=== PATIENT | male | born 2000 | race Caucasian/White ===

== ENCOUNTER 2025-03-28 12:48 | Emergency (ER) | payer SELFPAY ==
--- OUTSIDE RECORDS SUMMARY | 2025-03-28 13:22 | XMS_ITS | Clinical Summary ---
Author Organization [facility] Address [address] [place] [address] Care Team Providers Care Real Estate Legal Secretary Name Role Phone Tarah Downing MD Primary Care Provider [phone] Source Comments [facility],non-owned Affiliates and Associated Physician Practices is amultiple site organization consisting of ambulatory clinics and hospital sitesin [place], [place], [place] and [place]. This disclosure is being madepursuant to the Care Everywhere program and may not contain all information available regarding this patient. Last updated 18.[facility] Allergies No known active allergies Medications * Be aware that medications may not be up to date on this document. Alwaysverify current medications with the patient. Spacer/Aero-Hol ding Chambers (AEROCHAMBER) Use as directed. 1 Each 0 5 Active Additional Information Patient not taking.Reported on 12/26/2017 fluticasone hfa 110 (FLOVENT HFA 110) 110 MCG/ACT inhaler Inhale 2 Puffs by mouth 2 times daily Active cetirizine (ZYRTEC) 5 MG/5ML syrup Take 10 mL by mouth once daily 300 mL 7 Active Additional Information Patient not taking.Reported on 12/26/2017 albuterol HFA (PROVENTIL;VENT LASHAWN;PROAIR) 108 (90 BASE) MCG/ACT inhaler Inhale 4 puffs by mouth every 4 hours as needed for Shortness of Breath, Wheezing or Cough 1 Inhaler 8 Active ibuprofen (MOTRIN) 400 MG tablet Take 1 tablet by mouth every 6 hours as needed for Pain 30 tablet 8 Active albuterol HFA (PROVENTIL;VENT LASHAWN;PROAIR) 108 (90 Base) MCG/ACT inhaler Inhale 2 puffs by mouth every 4 hours as needed 1 Inhaler 5 9 Active Active Problems Problem Noted Date Diagnosed Date Head injury 03/10/2011 Overview (05/07/2015): Social History Tobacco Use Types Packs/Day Years Used Date Smoking Tobacco: Passive Smo ke Exposure - Never Smoker Smokeless Tobacco: Never Alcohol Use Standard Drinks/Week Comments No 0 (1 standard drink = 0.6 oz pur e alcohol) Sex and Gender Information Value Date Recorded Sex Assigned at Not on file Legal 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 Gender Identity Not on file Sexual Orientation Not on file Last Filed Vital Signs Vital Sign Reading Time Taken Comments Blood Pressure 108/72 06/27/2019 5:39 PM TEACHERS' AIDE Pulse 76 06/27/2019 5:39 PM TEACHERS' AIDE Temperature 36.6 C (97.9 F) 06/27/2019 5:39 PM TEACHERS' AIDE Respiratory Rate 20 06/27/2019 5:39 PM TEACHERS' AIDE Oxygen Saturation 96% 06/27/2019 6:49 PM TEACHERS' AIDE Inhaled Oxygen Concentration 100% 12/09/2014 1 0:15 AM CDT Weight 78.1 kg (172 lb 2.9 oz) 06/27/2019 5:39 P M TEACHERS' AIDE Height 190 cm (6' 2.8) 06/27/2019 5:39 PM TEACHERS' AIDE Body Mass Index 21.63 06/27/2019 5:39 PM TEACHERS' AIDE Plan of Treatment Health Maintenance Due Date Last Done Comments HIV SCREENING 2017 HPV VACCINE (1 - Male 3-dose series) 2017 MENINGOCOCCAL (Group B) VACC INE SHARED DECISION-MAKING (1 of 2 - Standard) 2018 HEPATITIS C SCREENING 04/16/2020 DTAP/TDAP/TD VACCINES (1 - Tdap) 2021 HEPATITIS B VACCINE (1 of 3 - 19+ 3-dose series) 2021 COVID-19 VACCINE ( - 2023-2 5 season) 2024 DEPRESSION SCREENING 08/07/2024 INFLUENZA VACCINE (#1) 2025 ZOSTER VACCINE (1 of 2) 2052 HIB VACCINE Aged Out No longer eligi ble based on patient's age to complete this topic MENINGOCOCCAL GROUPS A/C/Y/W VACCINE Aged Out No longer eligible b ased on patient's age to complete this topic PNEUMOCOCCAL VACCINE Aged Out No long er eligible based on patient's age to complete this topic Insurance [place] MEDICA[place] - [place] [facility] Care Teams Real Estate Legal Secretary Relationship Specialty Start Date End Date Tarah Downing MD [address] [place] [id number] PCP - General Pediatrics 01/15/15
[2025-03-28 13:24] LABS: Add Urine Microscopic? YES; Appearance Urine Cloudy (Clear); Glucose Urine UA Negative (Negative); Leukocyte Esterase Ur Negative LEU/UL (Negative); Nitrate Urine Negative (Negative); Non Pathogenic Casts 0-2; Specific Grav Ur 1.020 (1.001-1.035)
[2025-03-28 14:22] LABS: Trichomonas Vag PCR NOT DETECTED (NOT DETECTE)
--- NOTE | 2025-03-28 14:54 | ED_ITS ---
HPI - Male Genitourinary General Chief complaint: Urogenital-Male Stated complaint: I need STD testing Time Seen by Provider: 03/28/25 12:59 Source: patient Mode of arrival: ambulatory Limitations: no limitations History of Present Illness HPI Narrative: This is a 24-year-old male that presents to the emergency department for STD check. Reports partner tested positive for chlamydia and is currently being treated. He does not have any symptoms. Denies dysuria, urethral discharge, rashes. Related Data Allergies Allergy/AdvReac Type Severity Reaction Status Date / Time No Known Allergies Allergy Verified 03/28/25 14:58 Review of Systems Review of Systems: All systems reviewed & are unremarkable except as noted in HPI and below Exam Narrative: GENERAL: Well-appearing, well-nourished, and in no acute distress. HEAD: Normocephalic, atraumatic. EYES: EOMI. CHEST: No respiratory distress. HEART: Regular rate EXTREMITIES: Normal range of motion. No edema. SKIN: Warm, dry, no rash. NEURO: No focal deficits. Alert and oriented x3. PSYCH: Normal mood and affect Course Vital Signs Vital signs: Vital Signs Temperature 98.0 F 03/28/25 14:58 Pulse Rate 71 03/28/25 14:58 Respiratory Rate 18 03/28/25 14:58 Blood Pressure 119/78 03/28/25 14:58 Pulse Oximetry 99 03/28/25 14:58 Temperature 98.0 F 03/28/25 14:58 Pulse Rate 71 03/28/25 14:58 Respiratory Rate 18 03/28/25 14:58 Blood Pressure 119/78 03/28/25 14:58 Pulse Oximetry 99 03/28/25 14:58 MDM - Male Genitourinary MDM Narrative Medical decision making narrative: Patient presents the emergency department for STD check. Patient's partner had tested positive for chlamydia. He is currently asymptomatic. Chlamydia, gonor leah, Trichomonas were negative here. With patient's exposure he will be presumptively treated for chlamydia. Oral antibiotics sent to the pharmacy. He was given warnings to return to the ER Differential Diagnosis Differential diagnosis: Likely other (Chlamydia, gonorrhea, Trichomonas) Lab Data Attestation: I reviewed the patient's lab results. Labs: Lab Results 03/28/25 Range/Units 13:10 Urine Color Yellow (Yellow) Urine Appearance Cloudy H (Clear) Urine pH 8.0 (5.0-9.0) Ur Specific [place] 1.020 (1.001-1.035) Urine Protein Negative (Negative) mg/dL Urine Glucose (UA) Negative (Negative) mg/dL Urine Ketones Negative (Negative) mg/dL Ur Blood (Man) Negative (Negative) Urine Nitrate Negative (Negative) Urine Bilirubin Negative (Negative) Urine Urobilinogen 1.0 (<2.0) mg/dL Leukocyte Esterase Rfl Negative (Negative) DEANNE/UL Urine RBC 0-2 (0-2) /hpf Urine WBC 0-5 (0-3) /hpf Ur Squamous Epith Cells None seen (Few) /hpf Urine Bacteria None seen /hpf Urine Casts 0-2 C. trachomatis (PCR) Not detected (NOT DETECTE) N. gonorrhoeae (PCR) Not detected (NOT DETECTE) T. vaginalis (PCR) Not detected (NOT DETECTE) Critical Care Time Critical Care Time Critical Care Time: No Discharge Plan Discharge Clinical Impression: Exposure to chlamydia Patient Disposition: Home Condition: Stable Instructions: Antibiotic Form, Chlamydia (ED) Additional Instructions: Your chlamydia, gonorrhea and trichomonas tests were all negative. You should still be treated for chlamydia due to exposure Take oral antibiotics as prescribed Patient Language: Senegalese Prescriptions: New doxycycline hyclate 100 mg tablet 100 mg PO Q12H 7 Days Qty: 14 0RF Follow-up/Referrals: PHYSICIAN,SURVEYOR'S ASSISTANT [Primary Care Provider, Internal Medicine] Den Sprague MD [Physician, Family Practice]
[2025-03-28 14:58] VITALS: BP 119/78; PULSE 71; RESP 18; TEMP 36.7; O2SAT 99
== END 2025-03-28 15:12 | disposition home or self-care (01) ==
PROVIDERS: Emergency Provider Physician Assistant
DX: Z20.2 Contact with and (suspected) exposure to infections with a predominantly sexual mode of transmission (principal)
CPT/HCPCS: 81001; 87491; 87591; 87661; 99283

== ENCOUNTER 2025-08-04 23:04 | Emergency (ER) | payer SELFPAY ==
[2025-08-04 23:25] VITALS: BP 133/79; PULSE 81; RESP 18; TEMP 36.7; O2SAT 98
--- NOTE | 2025-08-05 02:22 | ED_ITS ---
HPI - Dental/Oral General Chief complaint: Dental/Oral Stated complaint: Dental pain Time Seen by Provider: 08/05/25 02:13 History of Present Illness HPI Narrative: 25-year-old male with no past medical history aside from asthma presenting to the emergency department today with gum inflammation versus infection for over a week. Has not seen a dentist and has no insurance. Denies any systemic symptoms. No pain but he is worried about his gums being inflamed as they are looking red and irritated. States he has poor dentition at baseline and he has had some rotting teeth for quite some time. Has not seen a dentist in a while. Was otherwise in his normal state of health. No traumatic injuries. No systemic symptoms. Teeth map: 2 1. Gingival inflammation and gingivitis evident with eroding away base of the teeth, but chronic. Related Data Allergies Allergy/AdvReac Type Severity Reaction Status Date / Time No Known Allergies Allergy Verified 08/04/25 23:04 Exam 2 Narrative: GENERAL: [Well-appearing, well-nourished, and in no acute distress.] HEAD: [Normocephalic, atraumatic.] EYES: [PERRLA and EOMI.] ENT: Nares clear, no rhinorrhea or epistaxis. Mucous membranes moist. Gingival inflammation and gingivitis evident with eroding away base of the teeth, but chronic. NECK: Supple. CHEST: [No respiratory distress.] EXTREMITIES: Normal range of motion. [No edema.] SKIN: Warm, dry, no rash. NEURO: [No focal deficits]. Alert and oriented [x3.] Course Vital Signs Vital signs: Vital Signs Temperature 36.7 C 08/04/25 23:25 Pulse Rate 81 08/04/25 23:25 Respiratory Rate 18 08/04/25 23:25 Blood Pressure 133/79 08/04/25 23:25 Pulse Oximetry 98 08/04/25 23:25 Oxygen Delivery Room Air 08/04/25 23:25 Temperature 36.7 C 08/04/25 23:25 Pulse Rate 81 08/04/25 23:25 Respiratory Rate 18 08/04/25 23:25 Blood Pressure 133/79 08/04/25 23:25 Pulse Oximetry 98 08/04/25 23:25 Oxygen Delivery Room Air 08/04/25 23:25 MDM MDM Narrative Medical decision making narrative: 25-year-old male with no past medical history aside from asthma presenting to the emergency department today with gum inflammation versus infection for over a week. Has not seen a dentist and has no insurance. Denies any systemic symptoms. No pain but he is worried about his gums being inflamed as they are looking red and irritated. States he has poor dentition at baseline and he has had some rotting teeth for quite some time. Has not seen a dentist in a while. Was otherwise in his normal state of health. No traumatic injuries. No systemic symptoms. Gingival inflammation and gingivitis evident with eroding away base of the teeth, but chronic. Hemodynamically stable without any fever. Given chlorhexidine mouthwash and instructions with dental follow-up. Safe for discharge. Differential Diagnosis Differential Diagnosis: Gingivitis, gingival inflammation, dental caries. Discharge Plan Discharge Clinical Impression: Gingivitis, Dental caries Patient Disposition: Home Condition: Stable Instructions: Antibiotic Form, Gingivitis (DC) Additional Instructions: Symptoms consistent with gingivitis and gum inflammation/infection. Take the prescription antimicrobial mouthwash and use it as directed. Follow-up with the dentist. Return with any emergencies. Tylenol and ibuprofen for pain or fever. Patient Language: Lebanese Prescriptions: New chlorhexidine gluconate 0.12 % mouthwash 15 ml buccal BID Qty: 120 0RF No Action doxycycline hyclate 100 mg tablet 100 mg PO Q12H 7 Days Qty: 14 0RF Follow-up/Referrals: PHYSICIAN,COMMERCIAL SALES DIRECTOR [Primary Care Provider, Internal Medicine] Time of Disposition: 02:21
[2025-08-05] MEDS: CHLORHEXIDINE GLUCONATE 0.12% ORAL RINSE 473 ML BTL (*BKC) 15 ML SWISH/SPIT (03:15)
[2025-08-05 03:20] VITALS: BP 132/76; PULSE 79; RESP 17; TEMP 36.6; O2SAT 100
[2025-08-05 03:22] VITALS: BP 132/76; PULSE 79; RESP 17; TEMP 36.6; O2SAT 100
== END 2025-08-05 03:38 | disposition home or self-care (01) ==
LOC: ANHED 08-05 02:29
PROVIDERS: Emergency Provider Student in an Organized Health Care Education/Training Program
DX: K05.10 Chronic gingivitis, plaque induced (principal); K02.9 Dental caries, unspecified
CPT/HCPCS: 99283; A4248